=== PATIENT | female | born 1980 | race Hispanic/Latino ===

== ENCOUNTER 2020-08-29 00:55 | Emergency (ER) | payer OTHER ==
[~2020-08-29] VITALS: Ht 152.4 cm; Wt 79.0 kg
[~2020-08-29 00:55] MED LIST: AMOXICILLIN500 MG PO; AMOXICILLIN875 MG OR; AZO-TABS95 MG PO; BACTRIM DS1 TAB PO; CIPROFLOXACN500 MG PO; CLARITIN10 M1 PO; CORTISPORIN OTI10 ML AU; DOXYCYCL HYC100 MG PO; FLONASE NASAL50 MCG; HYDROXYZ HCL25 MG PO; MEDDOSEPAK PO; NASONEX50 MCG/AC; PHENTERMINE H37.5 MG OR; PREDNISONE10 MG PO; PREDNISONE20 MG PO; SOLU-MEDROL125 MG IM; ZITHROMAX500 MG PO
[2020-08-29] MEDS ORDERED: LEXAPRO10 MG PO (01:17)
[2020-08-29] MEDS ORDERED: SINGULAIR10 MG PO (01:17)
[2020-08-29 01:51] LABS: HEMATOCRIT 39.6 % (37.0-47.0); HEMOGLOBIN 12.5 g/dl (12.0-16.0); IMMATURE GRANULOCYTES 0.2 % (0.0-5.0); MEAN CORPUSCULAR HGB 25.6 pG CALC (26.0-32.0); MEAN CORPUSCULAR HGB CONC 31.6 g/dL CAL (32.0-36.0); NEUT# 5.42 thou/uL (2.00-7.15); RED BLOOD COUNT 4.89 mill/uL (4.20-5.60); RED CELL DISTRI WIDTH 14.6 % (11.5-15.5)
[2020-08-29 02:04] LABS: ALBUMIN 3.9 g/dL (3.2-5.0); ALKALINE PHOSPHATASE 52 u/l (38-126); ANION GAP 12 (6-22 (CALC)); BUN 12 mg/dL (7-17); BUN/CREATININE RATIO 20 (12-20 (CALC)); CARBON DIOXIDE 24 mmol/l (22-30); CHLORIDE 105 mmol/l (95-108); CREATININE 0.6 mg/dL (0.5-1.0); GFR > 60 ML/MIN (>=60 (CALC)); GFR FOR AFR.AMER. > 60 ML/MIN (>=60 (CALC)); POTASSIUM 3.6 mmol/l (3.5-5.1); SGOT/AST 14 u/l (14-36); SODIUM 138 mmol/l (137-146); TOTAL PROTEIN 7.1 g/dL (6.3-8.2)
[2020-08-29 02:13] LABS: BILIRUBIN, TOTAL 0.6 mg/dL (0.0-1.4)
[2020-08-29 03:41] VITALS: BP 143/71
== END 2020-08-29 03:51 | disposition home or self-care (01) | DRG 310 ==
LOC: ED 00:55
PROVIDERS: Emergency Medicine
DX: R00.2 Palpitations (principal); F41.9 Anxiety disorder, unspecified; Z86.16 Personal history of COVID-19